=== PATIENT | female | born 1930 | race Caucasian/White ===

== ENCOUNTER → 2016-12-15 | Outpatient (CLI) | payer MEDICARE, BC ==
[2016-12-15 08:21] LABS: BASOPHILS % (AUTO) 1 % (0-2); EOSINOPHILS # (AUTO) 0.4 10^3uL; EOSINOPHILS % (AUTO) 5 % (0-4); LYMPHOCYTES # (AUTO) 1.2 X10^3; MEAN CORPUSCULAR HEMOGLOBIN 29.7 PG (26.0-34.0); MEAN CORPUSCULAR HGB CONC 34.9 g/dL (31.0-37.0); MEAN CORPUSCULAR VOLUME 85 FL (80-100); MEAN PLATELET VOLUME 9.6 FL (6.0-9.5); MONOCYTES # (AUTO) 0.7 X10^3; MONOCYTES % (AUTO) 9 % (3-11); NEUTROPHILS # (AUTO) 5.3 X10^3; NEUTROPHILS % (AUTO) 69 % (51-67); PLATELET COUNT 236 10^3uL (150-450); WHITE BLOOD COUNT 7.76 10^3uL (4.0-11.0)
[2016-12-15 08:32] LABS: ALBUMIN 4.7 g/dL (3.4-5.0); ANION GAP 18.3 MEQ/L (3-15); CALCULATED IONIZED CALCIUM 4.4 mg/dL (3.8-4.6); TOTAL PROTEIN 7.8 g/dL (6.4-8.5)
== END ==
LOC: LAB 07:54
PROVIDERS: ATTEND Internal Medicine
DX: Z00.00 Encounter for general adult medical examination without abnormal findings (principal); I10 Essential (primary) hypertension; E78.4 Other hyperlipidemia; R73.09 Other abnormal glucose
CPT/HCPCS: 36415; 80053; 80061; 83036; 84443; 85025

== ENCOUNTER → 2017-02-28 | Outpatient (REF) | payer MEDICARE, BC ==
[~2017-02-28] MED LIST: AMLO5TAB4 PO; ASPI-504 PO; ATEN25PO MC; ATN25T PO; AZIT250T81 PO; CALC500T55 PO; SERT25TA69 PO; SPIR25TA PO; TELM40T PO; ZLP10T PO
== END ==
LOC: LAB 11:49
PROVIDERS: ATTEND Internal Medicine
DX: R30.0 Dysuria (principal)
CPT/HCPCS: 87077; 87088; 87186

== ENCOUNTER → 2017-03-06 | Outpatient (REF) | payer MEDICARE, BC ==
[2017-03-06 17:37] LABS: BASOPHILS % (AUTO) 1 % (0-2); EOSINOPHILS # (AUTO) 0.3 10^3uL; EOSINOPHILS % (AUTO) 3 % (0-4); LYMPHOCYTES # (AUTO) 1.7 X10^3; MEAN CORPUSCULAR HEMOGLOBIN 29.1 PG (26.0-34.0); MEAN CORPUSCULAR HGB CONC 33.9 g/dL (31.0-37.0); MEAN CORPUSCULAR VOLUME 86 FL (80-100); MEAN PLATELET VOLUME 10.1 FL (6.0-9.5); MONOCYTES # (AUTO) 0.9 X10^3; MONOCYTES % (AUTO) 9 % (3-11); NEUTROPHILS # (AUTO) 7.2 X10^3; NEUTROPHILS % (AUTO) 70 % (51-67); PLATELET COUNT 275 10^3uL (150-450); WHITE BLOOD COUNT 10.25 10^3uL (4.0-11.0)
[2017-03-06 17:46] LABS: ANION GAP 18.8 MEQ/L (3-15); BUN/CREATININE RATIO 31 (10-20)
== END ==
LOC: LAB 17:28
PROVIDERS: ATTEND Internal Medicine
DX: R53.83 Other fatigue (principal); I10 Essential (primary) hypertension; R73.09 Other abnormal glucose
CPT/HCPCS: 80048; 84443; 85025; 86140